=== PATIENT | female | born 1970 | race Caucasian/White ===

== ENCOUNTER 2018-06-02 11:30 | Emergency (ER) | payer MEDICAID ==
[2018-06-02] MEDS ORDERED: OLANZapine DISINTEGR 5 MG TAB PO ONE (11:45)
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
[2018-06-02] MEDS ORDERED: LORazepam 2 MG/ML INJ IM ONE (12:09)
[2018-06-02] MEDS ORDERED: HALOPERIDOL LACT 5 MG/ML INJ IM ONE (12:09)
[2018-06-02 13:06] LABS: PLATELET COUNT 242 10^3/uL (150-400)
--- NOTE | 2018-06-02 19:58 | ASMTLCPROG ---
Notes Note: Notes: TLC communicated with [facility]. Pt had been evaluated by [facility] in November of 2017 when she was at [facility]. Her hold was vacated at the time and pt was discharged to the community. TLC attempted evaluation at 17:15 but pt was too groggy to answer questions. TLC will make attempt to complete evaluation when she is more alert and able to participate. Date Signed: 06/02/2018 05:29 PM Electronically Signed By:Beatrice Winchester
[2018-06-02 23:16] VITALS: BP 165/79
--- NOTE | 2018-06-02 23:56 | ASMTTCLDSP ---
TLC Discharge Disposition Disposition: Answers: Discharge If Answers: Yes DISCHARGED: Patient/family given suicide hotline info & SAMHSA brochure? Disposition Notes: Notes: In consultation with [facility] ED physician, Chapin Mcleod MD, and on-call psychiatrist, Angel Hernandez MD, both concurred that the patient does not appear to meet 27-65 criteria requiring psychiatric hospitalization as patient does not appear to be an imminent risk of harm to self/others due to a mental illness condition. Dr. Hernandez provided telephone order read back vacating M1 hold at 23:30 hrs. Discharge Concerns/Recommendations: Notes: The patient stated commitment or ability to keep self safe and denied thoughts of self harm or harm to others, as well as A/VH. The patient was given local hotline information and SAMSHA brochure after an attempt and encouraged to follow up with [facility] or [facility]. Was patient given the Answers: Not applicable Inpatient Behavioral Health Prohibited Belongings List while in the ED? Date and time M1 hold 06/02/2018 11:30 PM vacated (time format is hh:mm): Type of Hold: Answers: M1/72-hour Hold Hold initiated by: Answers: Police Date Signed: 06/02/2018 11:55 PM Electronically Signed By:Mita Hays
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
== END 2018-06-03 00:28 | disposition home or self-care (01) ==
DX: F29 Unspecified psychosis not due to a substance or known physiological condition (principal)
CPT/HCPCS: 80305; G0480; J1630; J2060